=== PATIENT | female | born 1995 | race Caucasian/White ===

== ENCOUNTER 2016-06-27 12:28 | Emergency (ER) | payer OTHER ==
[~2016-06-27] VITALS: Ht 167.6 cm; Wt 80.1 kg
[2016-06-27 12:30] VITALS: TEMP 37.6; Ht 167.6 cm; Wt 80.1 kg
--- NOTE | 2016-06-27 13:18 | DIAGNOSTIC IMAGING REPORT ---
HEAD CT NONCONTRAST CT DOSE: 812.17 mGycm HISTORY: head injury TECHNIQUE: Multiaxial CT images of the head were performed without the use of intravenous contrast. Comparison: None. Findings: The paranasal sinuses and mastoid air cells are clear. The calvarium and skull base are intact. The ventricles and sulci are within normal limits. There is no mass, hematoma, midline shift, or acute infarct. Impression: No acute intracranial abnormality. Electronically signed by: Jean Hooker M.D. 06/27/2016 1:17 PM Dictated Date/Time: 06/27/2016 1:16 PM
--- NOTE | 2016-06-27 13:25 | EMERGENCY ROOM VISIT NOTE ---
ED Visit Note First contact with patient: 12:42 CHIEF COMPLAINT: Head injury HISTORY OF PRESENT ILLNESS: This 20-year-old female patient presented to the emergency department ambulatory after receiving a head injury when she hit her head when standing up into a bar at work 2 days ago. There was no brief loss of consciousness or vomiting. No difficulty with speech. The headache has been dull. The patient complains of moderate neck pain. No loss of appetite or unusual behavior since the injury. The patient has taken Advil for the pain. The patient rates the pain as 6/10 and dull, sharp in the neck. She reports photosensitivity, lightheadedness, hyperacusis, neck stiffness. She has not had any numbness, to get, weakness of extremities. The patient was seen at [facility] and referred to the emergency department for CT imaging. REVIEW OF SYSTEMS: A 6 system review of systems was completed with positives and pertinent negatives listed in the HPI. ALLERGIES: Penicillins MEDICATIONS: None PMH: None SOCIAL HISTORY: The patient lives locally. In she does not smoke. She is a student PHYSICAL EXAM: Vital Signs: Reviewed Nurse's notes, vital signs stable. GENERAL : This is a 20-year-old female, in no acute distress, well-developed, well- nourished. NEURO: The patient is alert, oriented to person place and time, and coherent. Normal mini mental status exam. Negative Romberg and pronator drift. Cerebellar function intact. HEAD: There is tenderness to palpation to the top of the head.. EYES: Pupils are equal round and reactive to light and accommodation. EOMs are full and optic discs and fundi are normal. There is no swelling or discoloration of the tissue surrounding the eyes. EARS: External auditory canals clear without blood. NOSE: Patent without tenderness. No septal hematoma. FACE: No facial tenderness. NECK: Supple. There is moderate cervical spine tenderness. ED COURSE: I examined the patient. The patient was seen and examined. Previous visits were reviewed. The patient does report symptoms suggestive of a mild concussion. She was referred to the emergency department for CT imaging by urgent care. CT scan of the brain and neck does not reveal any acute intracranial bleeding, skull fracture or cervical spine fracture. The patient was given a note for class. She does not work again until Friday and was encouraged to follow-up with [facility] on Friday for recheck and clearance to return to work. She should return to the ER with any worsening symptoms. The patient was discharged home in good condition ambulatory. GCS: 15 [~ rep ct add3]] CT OF THE CERVICAL SPINE WITHOUT CONTRAST CLINICAL HISTORY: Neck pain following injury. COMPARISON STUDY: No previous studies for comparison. TECHNIQUE: Helical axial images of the cervical spine were obtained without IV contrast. Sagittal and coronal reconstructions were viewed. FINDINGS: There is reversal of the normal cervical lordosis. The craniocervical junction is intact. There is no acute fracture. There is no prevertebral edema or pneumothorax within visualized portions of the lung apices. IMPRESSION: No acute cervical spine fracture or subluxation. HEAD CT NONCONTRAST CT DOSE: 812.17 mGycm HISTORY: head injury TECHNIQUE: Multiaxial CT images of the head were performed without the use of intravenous contrast. Comparison: None. Findings: The paranasal sinuses and mastoid air cells are clear. The calvarium and skull base are intact. The ventricles and sulci are within normal limits. There is no mass, hematoma, midline shift, or acute infarct. Impression: No acute intracranial abnormality. Current/Historical Medications No Active Prescriptions or Reported Meds Allergies Coded Allergies: Amoxicillin (Unverified Allergy, Unknown, RASH, 06/27/16) Penicillins (Unverified Allergy, Unknown, RASH, 06/27/16) Vital Signs Date Time Temp Pulse Resp B/P Pulse Ox O2 Delivery O2 Flow Rate FiO2 06/27/16 14:04 91 16 129/76 100 06/27/16 12:30 37.6 101 17 116/80 100 Room Air Departure Information Impression Primary Impression: Closed head injury Additional Impressions: Concussion Cervical strain, acute Dispostion Home / Self-Care Condition GOOD Prescriptions No Active Prescriptions or Reported Meds Referrals No Doctor, Assigned (PCP) Patient Instructions Concussion, ED Head Injury Closed, [facility] Additional Instructions Tylenol according to package instructions for pain Follow up with [facility] on Friday for recheck and release duty at work Return with any worsening symptoms Problem Qualifiers Primary Impression: Closed head injury Encounter type: initial encounter Qualified Codes: S09.90XA - Unspecified injury of head, initial encounter Additional Impressions: Concussion Encounter type: initial encounter Loss of consciousness presence/duration: without LOC Qualified Codes: S06.0X0A - Concussion without loss of consciousness, initial encounter Cervical strain, acute Encounter type: initial encounter Qualified Codes: S16.1XXA - Strain of muscle, fascia and tendon at neck level, initial encounter
[2016-06-27 14:04] VITALS: BP 129/76; PULSE 91; O2SAT 100
== END 2016-06-27 14:05 | disposition home or self-care (01) ==
LOC: C.EDB 12:30 → C.EDD 14:05
DX: S06.0X0A Concussion without loss of consciousness, initial encounter (principal); S16.1XXA Strain of muscle, fascia and tendon at neck level, initial encounter; Y92.89 Other specified places as the place of occurrence of the external cause; Y99.0 Civilian activity done for income or pay